=== PATIENT | female | born 1955 | race Caucasian/White ===

== ENCOUNTER 2021-03-25 06:04 | Day surgery (SDC) | payer MEDICARE, OTHER ==
[2021-03-25] MEDS ORDERED: Lactated Ringers 1,000 ML IV SCH (06:30)
[2021-03-25] MEDS ORDERED: DIPRIVAN 200 MG/20 ML IV ONE ×2 (06:57→07:12)
[2021-03-25 08:30] VITALS: BP 149/64; PULSE 77; O2SAT 98
--- NOTE | 2021-03-25 10:43 | OP ---
SURGERY DATE: 03/25/2021 SURGERY TIME: 658 PREOPERATIVE DIAGNOSIS: 1. SCREENING COLONOSCOPY. POSTOPERATIVE DIAGNOSIS: 1. RECTAL POLYPS X 6. PROCEDURE: 1. Colonoscopy. SURGEON: Dr. Geovani Flores. ANESTHESIA: MAC by Perry Lyman CRNA. SPECIMENS: 6 hot forceps polypectomies from rectal area. ESTIMATED BLOOD LOSS: Minimal. DESCRIPTION OF PROCEDURE: After informed written consent was obtained, the patient was taken to the endoscopy suite. She was placed in the left lateral decubitus position and anesthesia was titrated to the desired level of consciousness. Digital rectal exam showed normal sphincter tone and no internal lesions. The scope was inserted in the rectum and sequentially the entire colonic mucosa was traversed. The level of the cecum was reached and verified with direct visualization of the ileocecal valve. Careful mucosal inspection revealed multiple rectal polyps just below the 3rd valve of [place] and further distally. There were multiple small flat sessile polyps in this region. Approximately 6 of them were grasped with the forceps, cauterized, and removed in their entirety. One of the larger lesions was removed in multiple pieces. These were all in the same proximity. Therefore, were sent in the same specimen container. There were likely other early lesions that were minimally visible, but nothing significant to biopsy. Retroflexion showed no internal lesions. The scope was removed and the patient was transferred to the recovery room in good condition. She will likely need close interval follow-up due to the multiple polyps present in the lower rectal area, she will follow-up in a week for pathology.
== END 2021-03-25 08:45 | disposition home or self-care (01) ==
LOC: SDC 06:04
PROVIDERS: ATTEND Family Medicine
DX: Z12.11 Encounter for screening for malignant neoplasm of colon (principal); K59.00 Constipation, unspecified; I10 Essential (primary) hypertension; E03.9 Hypothyroidism, unspecified; Z79.899 Other long term (current) drug therapy; K62.1 Rectal polyp
CPT/HCPCS: 88305; J2704